=== PATIENT | male | born 1940 | race Caucasian/White ===

== ENCOUNTER → 2016-11-17 | Outpatient (CLI) | payer OTHER, BC ==
[~2016-11-17] MED LIST: ABILIFY15 MG PO; ACIPHEX20 MG PO; ARTANE2 MG PO; ASCORBIC ACID500 M3 PO; ASPIRIN81 M1 PO; CENTRUM SILVER1 EACH PO; COLACE100 MG PO; CONCERTA27 MG PO; COUMADIN,JANTOVE1 MG PO; Colace PO; ENDOCET 5-3251 EACH PO; FLONASE16 G1 BOTH NARES; FLUTICASONE PRO16 GM BOTH NARES; FOLIC ACID1 MG PO; Feosol PO; GUAIFENESI100 MG/5 M PO; HYDROCODON-ACE1 EAC7 PO; INDERAL10 MG PO; ISTALOL5 ML OP; LEXAPRO10 MG PO; LIPITOR20 MG PO; LIPITOR40 MG PO; Lumigan 0.01% Ophth BOTH EYES; METAXALONE800 MG PO; MOBIC15 MG PO; OMEPRAZOLE40 M1 PO; OPANA ER10 MG PO; OPANA IR5 MG PO; Opana ER PO; PRESERVISION T1 EACH PO; PROPOXYPHENE1 TABLET PO; ROXICET 5-3251 EACH PO; SENNA-TIME S T1 EACH PO; SINGULAIR10 MG PO; TOPROL XL25 MG PO; TYLENOL REGULA325 MG PO; TYLENOL650 MG PR; Theragran-M,Centrum, PO; VITAMIN B12-FO1 EACH PO; VITAMIN D31000 UNI2 PO
[2016-11-17 10:38] LABS: APPEARANCE CLEAR/COLORLESS; CSF EOSINOPHILS 0 % (0-25); MONO RAW COUNT 1; MONONUCLEAR WBC'S 100 % (50-90); POLYNUCLEAR WBC'S 0 % (0-3); RED CELL AREA COUNTED 18; RED CELL COUNT 89 /MM^3 (0-1); RED CELL DILUTION 1; WBC AREA COUNTED 18; WBC DILUTION 1; WHITE CELL COUNT 1 /MM^3 (0-5); WHITE CELL RAW COUNT 1
[2016-11-17 10:49] LABS: APPEARANCE (RECHECK) CLEAR/COLORLESS; CSF TUBE NUMBER (RECHECK) TUBE #1
[2016-11-17 10:50] LABS: RED CELL AREA COUNTED 8; RED CELL COUNT (RECHECK) 338 /MM^3 (0-1); RED CELL DILUTION 1
== END | disposition home or self-care (01) ==
LOC: RAD 08:45
PROVIDERS: Psychiatry & Neurology Neurology
PROC: 00933ZX Drainage of Intracranial Epidural Space, Percutaneous Approach, Diagnostic (ICD-10-PCS; principal; 2016-11-17)
DX: R27.0 Ataxia, unspecified (principal); R94.02 Abnormal brain scan
CPT/HCPCS: 62270; 77003; 78630; 78999; 82607; 82746; 82945; 84157; 86592 90; 86617 90; 86618 90; 87070; 87205; 89051; A9548